=== PATIENT | female | born 1945 | race Caucasian/White ===

== ENCOUNTER 2019-03-06 16:11 | Inpatient (IN) | payer MEDICARE, MEDICAID ==
[2019-03-06] VITALS (19 sets, daily range): BP systolic 92–133; BP diastolic 47–82
[~2019-03-06] VITALS: Ht 165.1 cm; Wt 61.0 kg
[2019-03-06] MEDS ORDERED: ONDANSETRON HCL 4MG/2ML INJ IV STA (16:18)
[2019-03-06] MEDS ORDERED: HYDRALAZINE 20MG/ML VIAL IV ONE (16:30)
[2019-03-06] MEDS ORDERED: LEVETIRACETAM 500MG PREMIX 100 ML IV ONE (16:45)
[2019-03-06] MEDS ORDERED: DEXAMETHASONE 10 MG/ML VIAL IV ONE (16:45)
[2019-03-06] MEDS ORDERED: NICARDIPINE 50 MG in SODIUM CHLORIDE 0.9% 230 ML IV PRN ×2 (16:45→17:15)
[2019-03-06 16:59] LABS: BASOPHILS % 0.8 % (0.0-2.0); EOSINOPHILS % 0.6 % (0.0-5.0); HEMATOCRIT. 40.7 % (36.0-48.0); HEMOGLOBIN. 13.8 g/dL (12.0-16.0); LYMPHOCYTES % 14.1 % (20.0-50.0); MEAN CORPUSCULAR HEMOGLOBIN 31.4 pg (28.0-32.0); MEAN CORPUSCULAR VOLUME 92.4 fL (81.0-99.0); MEAN PLATELET VOLUME 11.7 fl (7.4-10.4); MONOCYTES % 7.1 % (2.0-8.0); NEUTROPHILS % 77.4 % (40.0-76.0); PLATELET 128 x1000/uL (130-400); RED CELL DISTRIBUTION WIDTH 13.7 % (11.6-14.6)
[2019-03-06 17:04] LABS: CHLORIDE 106 mEq/L (98-107)
[2019-03-06 17:08] LABS: PARTIAL THROMBOPLASTIN TIME 29.9 sec (23.4-31.0); PROTHROMBIN TIME 10.1 sec (9.6-11.0)
[2019-03-06 17:09] LABS: ETHANOL BLOOD < 10 mg/dL
[2019-03-06 17:11] LABS: LDL CHOLESTEROL 50 mg/dL (5-100)
[2019-03-06] MEDS: DEXT 5%/LACTATED RINGERS 1,000 ML IV SCH ×2 (17:15→18:30)
[2019-03-06] MEDS ORDERED: NICARDIPINE 100 MG in SODIUM CHLORIDE 0.9% 60 ML IV PRN (17:15)
[2019-03-06] MEDS ORDERED: FUROSEMIDE 20MG/2ML VIAL IVP ONE ×2 (17:15→21:00)
[2019-03-06 18:46] LABS: CLARITY URINE CLEAR (CLEAR); COLOR URINE YELLOW (YELLOW); KETONES URINE NEGATIVE (NEGATIVE); LEUKOCYTE ESTERASE URINE NEGATIVE (NEGATIVE); NITRITE URINE NEGATIVE (NEGATIVE); OCCULT BLOOD URINE NEGATIVE (NEGATIVE); PROTEIN URINE NEGATIVE (NEGATIVE); SPECIFIC GRAVITY URINE 1.006 (1.005-1.030); UROBILINOGEN URINE 0.2 E.U./dL (0.2-1.0)
[2019-03-06] MEDS ORDERED: IOHEXOL-350 100 ML BOTTLE ONE (18:46)
[2019-03-06] MEDS: DEXAMETHASONE 4MG/ML 1ML VIAL IV SCH (19:26)
[2019-03-06] MEDS ORDERED: LEVETIRACETAM 500MG in SODIUM CHLORIDE 0.9% 100ML IV SCH (21:00)
[2019-03-06] MEDS ORDERED: GABA-290 PO (21:11)
[2019-03-06] MEDS: LEVETIRACETAM 500MG PREMIX 100 ML IV SCH (21:40)
[2019-03-06] MEDS ORDERED: ATOR40TA70 MT (21:52)
[2019-03-06] MEDS ORDERED: MIRT15TA6 PO (22:16)
[2019-03-06] MEDS ORDERED: FURO-151 PO (22:17)
[2019-03-06] MEDS ORDERED: ASPI-1497 PO (22:18)
[2019-03-06] MEDS ORDERED: ARIP5TAB58 PO (22:19)
[2019-03-06] MEDS ORDERED: LISI2.5T47 PO (22:20)
[2019-03-06] MEDS ORDERED: ALEN70TA68 PO (22:23)
[2019-03-07] VITALS (100 sets, daily range): BP systolic 80–205; BP diastolic 35–113
[2019-03-07] MEDS: DEXAMETHASONE 4MG/ML 1ML VIAL IV SCH ×5 (00:08→23:29)
[2019-03-07] MEDS: NICARDIPINE 100 MG in SODIUM CHLORIDE 0.9% 60 ML IV PRN (00:15)
[2019-03-07] MEDS ORDERED: FUROSEMIDE 20MG/2ML VIAL IVP NR (01:30)
[2019-03-07] MEDS: MORPHINE SULFATE 2 MG/ML CPJ (NOT FOR IM USE) IV PRN ×5 (07:32→23:29)
[2019-03-07 07:53] LABS: *AMPHETAMINES SCREEN URINE NEGATIVE (NEGATIVE); *BARBITURATES SCREEN URINE NEGATIVE (NEGATIVE); *BENZODIAZEPINES SCREEN URINE NEGATIVE (NEGATIVE); *COCAINE SCREEN URINE NEGATIVE (NEGATIVE); CANNABINOID URINE SCREEN NEGATIVE (NEGATIVE); METHADONE URINE SCREEN NEGATIVE (NEGATIVE); OPIATES URINE SCREEN NEGATIVE (NEGATIVE)
[2019-03-07 07:54] LABS: PHENCYCLIDINE URINE SCREEN NEGATIVE (NEGATIVE)
[2019-03-07] MEDS: LEVETIRACETAM 500MG PREMIX 100 ML IV SCH ×2 (08:03→21:34)
[2019-03-07] MEDS: FAMOTIDINE 20MG/2ML VIAL IV SCH (08:03)
[2019-03-07] MEDS ORDERED: LEVETIRACETAM 500MG PREMIX 100 ML IV SCH (09:00)
[2019-03-07 10:27] LABS: HEMATOCRIT 36.2 % (36.0-48.0); HEMOGLOBIN 12.3 g/dL (12.0-16.0); MEAN CORPUSCULAR HEMOGLOBIN 31.1 pg (28.0-32.0); MEAN CORPUSCULAR VOLUME 91.8 fL (81.0-99.0); PLATELET 153 x1000/uL (130-400); RED BLOOD CELL COUNT 3.95 mill/uL (4.2-5.4); RED CELL DISTRIBUTION WIDTH 13.7 % (11.6-14.6)
[2019-03-07 10:36] LABS: CHLORIDE 109 mEq/L (98-107)
[2019-03-07] MEDS ORDERED: IPRATROPIUM/ALBUTEROL 0.5-3(2.5)MG/3ML NEB HHN PRN (12:00)
[2019-03-07] MEDS ORDERED: POTASSIUM CHLORIDE INJ 40 MEQ in DEXT 5% WATER 250 ML IV NR (13:00)
[2019-03-07] MEDS: DEXT 5%/LACTATED RINGERS 1,000 ML IV SCH (21:33)
[2019-03-08] VITALS (88 sets, daily range): BP systolic 76–211; BP diastolic 16–162
[2019-03-08] MEDS ORDERED: MORPHINE SULFATE 2 MG/ML CPJ (NOT FOR IM USE) IV SCH (01:00)
[2019-03-08] MEDS: NICARDIPINE 100 MG in SODIUM CHLORIDE 0.9% 60 ML IV PRN (04:17)
[2019-03-08] MEDS: MORPHINE SULFATE 2 MG/ML CPJ (NOT FOR IM USE) IV PRN ×2 (04:31→08:54)
[2019-03-08] MEDS: DEXAMETHASONE 4MG/ML 1ML VIAL IV SCH ×2 (05:06→12:15)
[2019-03-08 05:11] LABS: HEMATOCRIT. 37.2 % (36.0-48.0); HEMOGLOBIN. 12.4 g/dL (12.0-16.0); MEAN CORPUSCULAR HEMOGLOBIN 31.4 pg (28.0-32.0); MEAN CORPUSCULAR VOLUME 93.8 fL (81.0-99.0); PLATELET 162 x1000/uL (130-400); RED BLOOD CELL COUNT 3.96 mill/uL (4.2-5.4); RED CELL DISTRIBUTION WIDTH 13.8 % (11.6-14.6)
[2019-03-08 05:13] LABS: CHLORIDE 112 mEq/L (98-107)
[2019-03-08] MEDS: LEVETIRACETAM 500MG PREMIX 100 ML IV SCH ×2 (08:53→21:36)
[2019-03-08] MEDS: FAMOTIDINE 20MG/2ML VIAL IV SCH (08:53)
[2019-03-08 09:48] LABS: PLATELET ESTIMATE NORMAL
[2019-03-08] MEDS ORDERED: MORPHINE SULFATE 4 MG/ML CPJ (NOT FOR IM USE) IV PRN (17:47)
[2019-03-08] MEDS ORDERED: DIPHENHYDRAMINE 50MG/ML VIAL IV PRN (18:00)
[2019-03-08] MEDS ORDERED: HYDROMORPHONE HCL/PF 2MG/ML CPJ IV PRN (18:00)
[2019-03-08] MEDS: TRIAMCINOLONE ACETONIDE 0.025% CREAM 15GM TOP SCH (21:37)
[2019-03-09] VITALS (68 sets, daily range): BP systolic 69–188; BP diastolic 38–130
[2019-03-09] MEDS: LEVETIRACETAM 500MG PREMIX 100 ML IV SCH (08:43)
[2019-03-09] MEDS: FAMOTIDINE 20MG/2ML VIAL IV SCH (08:43)
[2019-03-09] MEDS: TRIAMCINOLONE ACETONIDE 0.025% CREAM 15GM TOP SCH (08:49)
[2019-03-09] MEDS: QUETIAPINE FUMARATE 25MG TABLET PO SCH ×2 (09:00→11:23)
[2019-03-09] MEDS ORDERED: LISI10TA5 PO (13:11)
[2019-03-09] MEDS ORDERED: LISINOPRIL 10MG TABLET PO SCH (13:15)
[2019-03-09] MEDS ORDERED: LEVETIRACETAM 500MG/5ML CUP PO SCH (21:00)
== END 2019-03-09 16:30 | DRG 65 ==
LOC: ER 16:11 → MICUSO 16:47 → ENRESERV 17:59
PROVIDERS: ADMIT Internal Medicine; ATTEND Internal Medicine
PROC: 30233R1 Transfusion of Nonautologous Platelets into Peripheral Vein, Percutaneous Approach (ICD-10-PCS; 2019-03-06)
PROC: 30233K1 Transfusion of Nonautologous Frozen Plasma into Peripheral Vein, Percutaneous Approach (ICD-10-PCS; principal; 2019-03-07)
DX: I61.1 Nontraumatic intracerebral hemorrhage in hemisphere, cortical (principal); G81.91 Hemiplegia, unspecified affecting right dominant side; I50.42 Chronic combined systolic (congestive) and diastolic (congestive) heart failure; G93.49 Other encephalopathy; I11.0 Hypertensive heart disease with heart failure; F03.90 Unspecified dementia, unspecified severity, without behavioral disturbance, psychotic disturbance, mood disturbance, and anxiety; Z66 Do not resuscitate; R74.0 Nonspecific elevation of levels of transaminase and lactic acid dehydrogenase [LDH]; R29.810 Facial weakness; E78.00 Pure hypercholesterolemia, unspecified; F32.9 Major depressive disorder, single episode, unspecified; I25.10 Atherosclerotic heart disease of native coronary artery without angina pectoris; I25.2 Old myocardial infarction
CPT/HCPCS: 36415; 70496; 70498; 71045; 80048; 80053; 80305; 80320; 81003; 82962; 83721; 83880; 84484; 85025; 85027; 86850; 86900; 86927; 92610; 93005; 97167; 99291; A6261; J0360; J1100; J1170; J1200; J1940; J1953; J2270; J2405; J3480; J3490; J7050; J7060; J7070; P9017; P9034; Q9967; G0480

== ENCOUNTER 2021-01-23 11:24 | Inpatient (IN) | payer MEDICARE, MEDICAID ==
[~2021-01-23] VITALS: Ht 165.1 cm; Wt 55.8 kg
[~2021-01-23 11:24] MED LIST: ALEN70TA79 PO; ARIP5TAB58 PO; ASPI-1497 PO; ATOR40TA70 MT; FURO-151 PO; GABA-290 PO; LISI10TA26 PO; LISI2.5T47 PO; MIRT-89 PO
[2021-01-23] MEDS ORDERED: SODIUM CHLORIDE 0.9% 1,000 ML IV ONE (11:30)
[2021-01-23 12:07] LABS: BASOPHILS % 0.6 % (0.0-2.0); EOSINOPHILS % 0.1 % (0.0-5.0); HEMATOCRIT. 35.6 % (36.0-48.0); LYMPHOCYTES % 8.2 % (20.0-50.0); MEAN CORPUSCULAR HEMOGLOBIN 30.8 pg (28.0-32.0); MEAN CORPUSCULAR VOLUME 91.5 fL (81.0-99.0); MEAN PLATELET VOLUME 10.5 fl (7.4-10.4); MONOCYTES % 11.5 % (2.0-8.0); NEUTROPHILS % 79.6 % (40.0-76.0); PLATELET 157 x1000/uL (130-400); RED BLOOD CELL COUNT 3.89 mill/uL (4.2-5.4); RED CELL DISTRIBUTION WIDTH 13.4 % (11.6-14.6)
[2021-01-23 12:16] LABS: CHLORIDE 106 mEq/L (98-107)
[2021-01-23 12:30] LABS: INR 1.1; PROTHROMBIN TIME 11.4 sec (9.6-11.0)
[2021-01-23] MEDS ORDERED: IPRATROPIUM/ALBUTEROL 0.5-3(2.5)MG/3ML NEB HHN PRN (15:00)
[2021-01-23] MEDS ORDERED: ACETAMINOPHEN 325MG TABLET PO PRN (15:00)
[2021-01-23] MEDS ORDERED: CLONIDINE 0.1MG TABLET PO PRN (15:00)
[2021-01-23] MEDS ORDERED: DIPHENHYDRAMINE 50MG/ML VIAL IV PRN (15:00)
[2021-01-23] MEDS ORDERED: ONDANSETRON HCL 4MG/2ML INJ IV PRN (15:00)
[2021-01-23] MEDS ORDERED: SODIUM CHLORIDE 0.9% 1,000 ML IV SCH (15:13)
[2021-01-23] MEDS ORDERED: DEXTROSE 50% WATER 50ML SYRINGE IV PRN (18:45)
[2021-01-23] MEDS ORDERED: SODIUM CHLORIDE 0.9% 1,000 ML IV NR (19:00)
[2021-01-23 20:13] LABS: CLARITY URINE CLEAR (CLEAR); COLOR URINE YELLOW (YELLOW); KETONES URINE NEGATIVE (NEGATIVE); LEUKOCYTE ESTERASE URINE TRACE (NEGATIVE); NITRITE URINE NEGATIVE (NEGATIVE); OCCULT BLOOD URINE NEGATIVE (NEGATIVE); PH URINE 7.5 (4.5-8.0); PROTEIN URINE NEGATIVE (NEGATIVE); SPECIFIC GRAVITY URINE 1.007 (1.005-1.030); UROBILINOGEN URINE 0.2 E.U./dL (0.2-1.0)
[2021-01-23 20:50] VITALS: BP 130/81
[2021-01-23] MEDS: INSULIN LISPRO 100 UNITS/ML SUBCUT SCH (21:00)
[2021-01-23] MEDS: BLOOD SUGAR DIAGNOSTIC STRIP TEST SCH (21:00)
[2021-01-23] MEDS ORDERED: GABA-529 PO (23:58)
[2021-01-23] MEDS ORDERED: LEVE500T19 PO (23:58)
[2021-01-23] MEDS ORDERED: LORA-250 MT (23:58)
[2021-01-23] MEDS ORDERED: BUSP5TAB3 PO (23:58)
[2021-01-23] MEDS ORDERED: QUET25TA PO (23:58)
[2021-01-23] MEDS ORDERED: CLON-457 PO (23:58)
[2021-01-24] VITALS: BP 136/71
[2021-01-24 04:00] VITALS: BP 142/71
[2021-01-24] MEDS: BLOOD SUGAR DIAGNOSTIC STRIP TEST SCH ×4 (07:28→21:00)
[2021-01-24] MEDS: INSULIN LISPRO 100 UNITS/ML SUBCUT SCH ×4 (07:28→21:00)
[2021-01-24 08:00] VITALS: BP 177/90
[2021-01-24 16:00] VITALS: BP 159/97
[2021-01-25] VITALS: BP 191/171
[2021-01-25] MEDS ORDERED: HYDRALAZINE 20MG/ML VIAL IV SCH (00:45)
[2021-01-25] MEDS ORDERED: HYDRALAZINE 20MG/ML VIAL IV PRN (00:45)
[2021-01-25 04:00] VITALS: BP 150/83
[2021-01-25] MEDS: BLOOD SUGAR DIAGNOSTIC STRIP TEST SCH ×2 (07:10→12:10)
[2021-01-25] MEDS: INSULIN LISPRO 100 UNITS/ML SUBCUT SCH ×2 (07:19→12:40)
[2021-01-25] MEDS: AMLODIPINE 2.5MG TABLET PO SCH ×2 (09:00→21:28)
[2021-01-25] MEDS: HYDRALAZINE HCL 50MG TABLET PO SCH ×2 (15:44→21:28)
[2021-01-25 16:00] VITALS: BP 165/79
[2021-01-25] MEDS ORDERED: LORAZEPAM 1MG TABLET PO PRN (18:00)
[2021-01-25] MEDS: ASPIRIN 81MG EC TABLET PO SCH (18:20)
[2021-01-25] MEDS: ARIPIPRAZOLE 5MG TABLET PO SCH (18:20)
[2021-01-25] MEDS: BUSPIRONE HCL 5MG TABLET PO SCH (18:23)
[2021-01-25 20:00] VITALS: BP 170/78
[2021-01-25] MEDS ORDERED: QUETIAPINE FUMARATE 25MG TABLET PO SCH (21:00)
[2021-01-25] MEDS: ATORVASTATIN CALCIUM 40MG TABLET PO SCH (21:28)
[2021-01-25] MEDS: MIRTAZAPINE 15MG TABLET PO SCH (21:28)
[2021-01-26] VITALS: BP 110/43
[2021-01-26 04:00] VITALS: BP 97/63
[2021-01-26] MEDS: HYDRALAZINE HCL 50MG TABLET PO SCH ×3 (06:00→22:00)
[2021-01-26] MEDS: ASPIRIN 81MG EC TABLET PO SCH (09:00)
[2021-01-26] MEDS ORDERED: LEVETIRACETAM 500MG TABLET PO SCH (09:00)
[2021-01-26] MEDS: ARIPIPRAZOLE 5MG TABLET PO SCH (09:00)
[2021-01-26] MEDS: BUSPIRONE HCL 5MG TABLET PO SCH (09:00)
[2021-01-26] MEDS ORDERED: GABAPENTIN 100MG CAPSULE PO SCH (09:00)
[2021-01-26] MEDS: AMLODIPINE 2.5MG TABLET PO SCH ×2 (09:00→20:51)
[2021-01-26] MEDS ORDERED: FUROSEMIDE 40MG TABLET PO SCH (09:00)
[2021-01-26 09:22] LABS: BASOPHILS % 0.6 % (0.0-2.0); EOSINOPHILS % 0.7 % (0.0-5.0); HEMATOCRIT. 43.3 % (36.0-48.0); HEMOGLOBIN. 14.3 g/dL (12.0-16.0); LYMPHOCYTES % 12.2 % (20.0-50.0); MEAN CORPUSCULAR HEMOGLOBIN 30.6 pg (28.0-32.0); MEAN CORPUSCULAR VOLUME 92.6 fL (81.0-99.0); MONOCYTES % 8.8 % (2.0-8.0); NEUTROPHILS % 77.7 % (40.0-76.0); PLATELET 176 x1000/uL (130-400); RED BLOOD CELL COUNT 4.67 mill/uL (4.2-5.4); RED CELL DISTRIBUTION WIDTH 13.6 % (11.6-14.6)
[2021-01-26] MEDS ORDERED: QUETIAPINE FUMARATE 25MG TABLET PO SCH (10:30)
[2021-01-26] MEDS ORDERED: QUET25TA PO (11:39)
[2021-01-26] MEDS ORDERED: HYDR-4135 PO (11:39)
[2021-01-26 16:00] VITALS: BP 102/69
[2021-01-26] MEDS: ATORVASTATIN CALCIUM 40MG TABLET PO SCH (20:51)
[2021-01-26] MEDS: MIRTAZAPINE 15MG TABLET PO SCH (20:52)
[2021-01-27] MEDS: HYDRALAZINE HCL 50MG TABLET PO SCH (05:21)
== END 2021-01-27 08:20 | DRG 73 ==
LOC: ER 11:24 → EDBEDREQTM 13:38 → EDBEDREQ 13:38 → ENRESERV 20:23 → 8WST 20:54
PROVIDERS: ADMIT Internal Medicine; ATTEND Internal Medicine
DX: G90.8 Other disorders of autonomic nervous system (principal); R57.1 Hypovolemic shock; G93.49 Other encephalopathy; E44.1 Mild protein-calorie malnutrition; N39.0 Urinary tract infection, site not specified; F03.91 Unspecified dementia, unspecified severity, with behavioral disturbance; R45.851 Suicidal ideations; E78.5 Hyperlipidemia, unspecified; I11.0 Hypertensive heart disease with heart failure; I25.10 Atherosclerotic heart disease of native coronary artery without angina pectoris; I50.9 Heart failure, unspecified; Z66 Do not resuscitate; F20.9 Schizophrenia, unspecified; R00.1 Bradycardia, unspecified; Z53.20 Procedure and treatment not carried out because of patient's decision for unspecified reasons; F31.9 Bipolar disorder, unspecified; T73.0XXA Starvation, initial encounter; X58.XXXA Exposure to other specified factors, initial encounter; Z20.822 Contact with and (suspected) exposure to COVID-19; G40.909 Epilepsy, unspecified, not intractable, without status epilepticus; I25.2 Old myocardial infarction; Z79.899 Other long term (current) drug therapy; Z86.73 Personal history of transient ischemic attack (TIA), and cerebral infarction without residual deficits; Z68.20 Body mass index [BMI] 20.0-20.9, adult; Z91.14 Patient's other noncompliance with medication regimen; Y93.89 Activity, other specified; Y92.89 Other specified places as the place of occurrence of the external cause; Y99.8 Other external cause status
CPT/HCPCS: 36415; 71045; 80048; 80053; 81003; 82962; 83036; 83605; 84484; 85025; 86850; 86900; 87426; 93005; 93970; 99291; J0360; J7030

== ENCOUNTER 2021-12-31 13:20 | Inpatient (IN) | payer MEDICARE, MEDICAID ==
[~2021-12-31] VITALS: Ht 162.6 cm; Wt 58.1 kg
[~2021-12-31 13:20] MED LIST changes: +BUSP5TAB3 PO; -FURO-151 PO; -GABA-290 PO; +GABA-529 PO; +HYDR-4135 PO; +LEVE500T19 PO; -LISI10TA26 PO; -LISI2.5T47 PO; +LORA-250 MT; +QUET25TA PO
[2021-12-31 15:44] LABS: HEMATOCRIT. 32.6 % (36.0-48.0); MEAN CORPUSCULAR VOLUME 88.8 fL (81.0-99.0); RED BLOOD CELL COUNT 3.67 mill/uL (4.2-5.4); RED CELL DISTRIBUTION WIDTH 13.6 % (11.6-14.6)
[2021-12-31 15:47] LABS: PROTHROMBIN TIME 10.9 sec (9.6-11.0)
[2021-12-31 15:54] LABS: CHLORIDE 106 mEq/L (98-107)
[2021-12-31 16:40] LABS: PLATELET ESTIMATE NORMAL
[2021-12-31 18:16] LABS: PHOSPHORUS 2.5 mg/dL (2.5-4.9)
[2021-12-31] MEDS ORDERED: LORAZEPAM 2MG/ML CPJ IV PRN (18:45)
[2021-12-31] MEDS ORDERED: MORPHINE SULFATE 2 MG/ML CPJ (NOT FOR IM USE) IV PRN (18:45)
[2021-12-31] MEDS ORDERED: DEXT 5%/0.9% NACL 1,000 ML IV SCH (18:45)
[2021-12-31] MEDS ORDERED: IPRATROPIUM/ALBUTEROL 0.5-3(2.5)MG/3ML NEB HHN PRN (18:45)
[2021-12-31] MEDS ORDERED: ONDANSETRON HCL 4MG/2ML INJ IV PRN (18:45)
[2021-12-31 20:05] LABS: TOTAL IRON BINDING CAPACITY 246 ug/dL (250-450)
[2021-12-31 20:59] LABS: FERRITIN 1572 ng/mL (10-291)
[2021-12-31] MEDS ORDERED: LEVETIRACETAM 500MG PREMIX 100 ML IV SCH (21:00)
[2021-12-31 21:05] LABS: VITAMIN B12 SERUM 327 pg/mL (211-911)
[2021-12-31 21:37] VITALS: BP 185/84
[2021-12-31 22:00] VITALS: BP 185/84
[2022-01-01] VITALS: BP 109/63
[2022-01-01 04:00] VITALS: BP 138/88
[2022-01-01 06:21] LABS: BASOPHILS % 0.7 % (0.0-2.0); EOSINOPHILS % 0.8 % (0.0-5.0); HEMATOCRIT. 33.5 % (36.0-48.0); HEMOGLOBIN. 11.4 g/dL (12.0-16.0); LYMPHOCYTES % 12.5 % (20.0-50.0); MEAN CORPUSCULAR HEMOGLOBIN 31.3 pg (28.0-32.0); MEAN CORPUSCULAR VOLUME 91.8 fL (81.0-99.0); MEAN PLATELET VOLUME 9.6 fl (7.4-10.4); MONOCYTES % 9.7 % (2.0-8.0); NEUTROPHILS % 76.3 % (40.0-76.0); PLATELET 289 x1000/uL (130-400); RED BLOOD CELL COUNT 3.65 mill/uL (4.2-5.4); RED CELL DISTRIBUTION WIDTH 13.8 % (11.6-14.6)
[2022-01-01 06:35] LABS: CHLORIDE 106 mEq/L (98-107)
[2022-01-01 06:56] LABS: T4 FREE 1.45 ng/dL (0.76-1.46)
[2022-01-01 08:00] VITALS: BP 111/56
[2022-01-01] MEDS: ENOXAPARIN 30MG/0.3ML SYR SUBCUT SCH (09:44)
[2022-01-01] MEDS ORDERED: NALOXONE HCL 0.4MG/ML VIAL IV PRN (10:30)
[2022-01-01] MEDS: DEXT 5%/0.9% NACL 1,000 ML IV SCH (11:06)
[2022-01-01 12:00] VITALS: BP 153/72
[2022-01-01] MEDS ORDERED: KCL 20MEQ/100ML PREMIX 100 ML IV SCH (15:00)
[2022-01-01 16:00] VITALS: BP 150/72
[2022-01-01 16:32] LABS: CLARITY URINE CLEAR (CLEAR); COLOR URINE YELLOW (YELLOW); KETONES URINE TRACE (NEGATIVE); LEUKOCYTE ESTERASE URINE 2+ (NEGATIVE); NITRITE URINE NEGATIVE (NEGATIVE); OCCULT BLOOD URINE NEGATIVE (NEGATIVE); PROTEIN URINE 1+ (NEGATIVE); SPECIFIC GRAVITY URINE 1.014 (1.005-1.030); UROBILINOGEN URINE 0.2 E.U./dL (0.2-1.0)
[2022-01-01] MEDS ORDERED: CEFTRIAXONE 1 G PREMIX 50 ML IV SCH (16:45)
[2022-01-01] MEDS: CEFTRIAXONE 1,000 MG in DEXTROSE 5% WATER 50 ML IV SCH (18:40)
[2022-01-01 20:00] VITALS: BP 100/72
[2022-01-01] MEDS: LEVETIRACETAM 500MG PREMIX 100 ML IV SCH (20:33)
[2022-01-02] VITALS: BP 164/86
[2022-01-02] MEDS: HYDRALAZINE 20MG/ML VIAL IV PRN ×2 (00:23→20:32)
[2022-01-02 04:00] VITALS: BP 158/90
[2022-01-02] MEDS: DEXT 5%/0.9% NACL 1,000 ML IV SCH (05:16)
[2022-01-02] MEDS ORDERED: ASPIRIN 300MG SUPP PR NR (07:30)
[2022-01-02 08:00] VITALS: BP 188/83
[2022-01-02 09:19] LABS: BASOPHILS % 0.7 % (0.0-2.0); EOSINOPHILS % 0.6 % (0.0-5.0); HEMATOCRIT. 33.8 % (36.0-48.0); HEMOGLOBIN. 11.5 g/dL (12.0-16.0); LYMPHOCYTES % 11.3 % (20.0-50.0); MEAN CORPUSCULAR HEMOGLOBIN 30.6 pg (28.0-32.0); MEAN CORPUSCULAR VOLUME 89.6 fL (81.0-99.0); MEAN PLATELET VOLUME 9.9 fl (7.4-10.4); MONOCYTES % 8.6 % (2.0-8.0); NEUTROPHILS % 78.8 % (40.0-76.0); PLATELET 278 x1000/uL (130-400); RED BLOOD CELL COUNT 3.77 mill/uL (4.2-5.4); RED CELL DISTRIBUTION WIDTH 13.1 % (11.6-14.6)
[2022-01-02] MEDS: ENOXAPARIN 30MG/0.3ML SYR SUBCUT SCH (09:29)
[2022-01-02] MEDS: LEVETIRACETAM 500MG PREMIX 100 ML IV SCH ×2 (09:29→20:32)
[2022-01-02 09:32] LABS: CHLORIDE 111 mEq/L (98-107)
[2022-01-02] MEDS ORDERED: POTASSIUM CHLORIDE INJ 40 MEQ in DEXT 5% WATER 250 ML IV ONE (10:00)
[2022-01-02] MEDS ORDERED: BISACODYL 5MG TABLET PO NR (11:45)
[2022-01-02] MEDS ORDERED: SORBITOL 70% SOLN 30ML PO NR (11:45)
[2022-01-02 12:00] VITALS: BP 152/69
[2022-01-02] MEDS: KCL 20MEQ/100ML X 2 FOR TOTAL KCL 40MEQ/200ML IV SCH ×2 (12:13→16:22)
[2022-01-02] MEDS ORDERED: KCL 20MEQ/100ML PREMIX 100 ML IV SCH (14:30)
[2022-01-02 16:00] VITALS: BP 160/80
[2022-01-02] MEDS: CEFTRIAXONE 1,000 MG in DEXTROSE 5% WATER 50 ML IV SCH (18:05)
[2022-01-02 18:30] LABS: BASOPHILS % 0.7 % (0.0-2.0); EOSINOPHILS % 0.5 % (0.0-5.0); HEMATOCRIT. 35.2 % (36.0-48.0); HEMOGLOBIN. 11.8 g/dL (12.0-16.0); LYMPHOCYTES % 13.5 % (20.0-50.0); MEAN CORPUSCULAR HEMOGLOBIN 30.8 pg (28.0-32.0); MEAN CORPUSCULAR VOLUME 91.5 fL (81.0-99.0); MEAN PLATELET VOLUME 9.9 fl (7.4-10.4); MONOCYTES % 9.2 % (2.0-8.0); NEUTROPHILS % 76.1 % (40.0-76.0); PLATELET 277 x1000/uL (130-400); RED BLOOD CELL COUNT 3.85 mill/uL (4.2-5.4); RED CELL DISTRIBUTION WIDTH 13.9 % (11.6-14.6)
[2022-01-02 18:47] LABS: CHLORIDE 112 mEq/L (98-107)
[2022-01-02 20:00] VITALS: BP 160/67
[2022-01-03] VITALS (10 sets, daily range): BP systolic 97–207; BP diastolic 57–98
[2022-01-03] MEDS: DEXT 5%/0.9% NACL 1,000 ML IV SCH ×2 (03:09→21:17)
[2022-01-03] MEDS ORDERED: ENALAPRIL 0.625 MG in DEXTROSE 5% WATER 49.5 ML IV PRN (07:30)
[2022-01-03] MEDS: ENOXAPARIN 30MG/0.3ML SYR SUBCUT SCH (09:10)
[2022-01-03] MEDS: LEVETIRACETAM 500MG PREMIX 100 ML IV SCH ×2 (09:10→20:02)
[2022-01-03] MEDS ORDERED: LORAZEPAM 2MG/ML CPJ IV PRN (12:45)
[2022-01-03] MEDS: ENALAPRIL 1.25MG/ML VIAL 1ML IV PRN ×2 (14:52→21:16)
[2022-01-03 16:08] LABS: BASOPHILS % 0.5 % (0.0-2.0); EOSINOPHILS % 0.3 % (0.0-5.0); HEMATOCRIT. 34.3 % (36.0-48.0); HEMOGLOBIN. 11.8 g/dL (12.0-16.0); LYMPHOCYTES % 10.8 % (20.0-50.0); MEAN CORPUSCULAR HEMOGLOBIN 31.1 pg (28.0-32.0); MEAN CORPUSCULAR VOLUME 90.3 fL (81.0-99.0); MEAN PLATELET VOLUME 9.4 fl (7.4-10.4); MONOCYTES % 8.5 % (2.0-8.0); NEUTROPHILS % 79.9 % (40.0-76.0); PLATELET 312 x1000/uL (130-400); RED BLOOD CELL COUNT 3.79 mill/uL (4.2-5.4); RED CELL DISTRIBUTION WIDTH 13.4 % (11.6-14.6)
[2022-01-03 16:31] LABS: CHLORIDE 115 mEq/L (98-107)
[2022-01-03] MEDS: CEFTRIAXONE 1,000 MG in DEXTROSE 5% WATER 50 ML IV SCH (17:15)
[2022-01-04] VITALS (7 sets, daily range): BP systolic 127–204; BP diastolic 83–105
[2022-01-04 06:55] LABS: BASOPHILS % 0.7 % (0.0-2.0); EOSINOPHILS % 0.8 % (0.0-5.0); HEMATOCRIT. 32.9 % (36.0-48.0); HEMOGLOBIN. 11.2 g/dL (12.0-16.0); LYMPHOCYTES % 14.7 % (20.0-50.0); MEAN CORPUSCULAR HEMOGLOBIN 30.5 pg (28.0-32.0); MEAN PLATELET VOLUME 9.6 fl (7.4-10.4); MONOCYTES % 9.1 % (2.0-8.0); NEUTROPHILS % 74.7 % (40.0-76.0); PLATELET 334 x1000/uL (130-400); RED BLOOD CELL COUNT 3.65 mill/uL (4.2-5.4); RED CELL DISTRIBUTION WIDTH 13.9 % (11.6-14.6)
[2022-01-04 06:58] LABS: INR 1.1; PROTHROMBIN TIME 12.2 sec (9.6-11.0)
[2022-01-04 07:19] LABS: CHLORIDE 116 mEq/L (98-107)
[2022-01-04] MEDS ORDERED: POTASSIUM CHLORIDE INJ 40 MEQ in DEXT 5% WATER 250 ML IV ONE (08:45)
[2022-01-04] MEDS: ENOXAPARIN 30MG/0.3ML SYR SUBCUT SCH (09:33)
[2022-01-04] MEDS: LEVETIRACETAM 500MG PREMIX 100 ML IV SCH ×2 (09:33→20:22)
[2022-01-04] MEDS: KCL 20MEQ/100ML X 2 FOR TOTAL KCL 40MEQ/200ML IV SCH ×2 (10:14→12:51)
[2022-01-04] MEDS ORDERED: CEFAZOLIN 1000MG PREMIX 50 ML IV NR (11:00)
[2022-01-04 16:16] LABS: CHLORIDE 116 mEq/L (98-107)
[2022-01-04] MEDS: CEFTRIAXONE 1,000 MG in DEXTROSE 5% WATER 50 ML IV SCH (17:04)
[2022-01-04] MEDS ORDERED: KCL 20MEQ/100ML PREMIX 100 ML IV NR (20:00)
[2022-01-04] MEDS: DEXT 5%/0.9% NACL 1,000 ML IV SCH (20:29)
[2022-01-04] MEDS: ENALAPRIL 1.25MG/ML VIAL 1ML IV PRN (21:11)
[2022-01-05] VITALS: BP 205/114
[2022-01-05] MEDS: ENALAPRIL 1.25MG/ML VIAL 1ML IV PRN ×3 (02:41→23:26)
[2022-01-05 04:00] VITALS: BP 182/86
[2022-01-05 08:00] VITALS: BP 156/77
[2022-01-05] MEDS ORDERED: POTASSIUM-SODIUM PHOSPHATE POWDER PACKET PEG SCH (08:45)
[2022-01-05] MEDS: LEVETIRACETAM 500MG PREMIX 100 ML IV SCH ×2 (09:01→20:44)
[2022-01-05] MEDS: ENOXAPARIN 30MG/0.3ML SYR SUBCUT SCH (09:02)
[2022-01-05] MEDS ORDERED: MAGNESIUM 2 G PREMIX 50 ML IV SCH (11:00)
[2022-01-05] MEDS ORDERED: POTASSIUM PHOS,M-BASIC-D-BASIC 30 MMOL in DEXT 5% WATER 500 ML IV NR (11:00)
[2022-01-05 12:00] VITALS: BP_SYST 102; BP_SYST 158; BP_DIAS 84
[2022-01-05 13:04] LABS: BASOPHILS % 1.2 % (0.0-2.0); EOSINOPHILS % 0.5 % (0.0-5.0); HEMATOCRIT. 34.8 % (36.0-48.0); HEMOGLOBIN. 11.7 g/dL (12.0-16.0); MEAN CORPUSCULAR HEMOGLOBIN 30.2 pg (28.0-32.0); MEAN CORPUSCULAR VOLUME 89.6 fL (81.0-99.0); MEAN PLATELET VOLUME 9.6 fl (7.4-10.4); MONOCYTES % 7.9 % (2.0-8.0); NEUTROPHILS % 72.4 % (40.0-76.0); PLATELET 306 x1000/uL (130-400); RED BLOOD CELL COUNT 3.89 mill/uL (4.2-5.4); RED CELL DISTRIBUTION WIDTH 13.9 % (11.6-14.6)
[2022-01-05 13:19] LABS: CHLORIDE 115 mEq/L (98-107)
[2022-01-05] MEDS: KCL 20MEQ/100ML PREMIX 100 ML IV SCH ×3 (15:21→23:25)
[2022-01-05] MEDS: DEXT 5%/0.45% NACL 1000ML 1,000 ML IV SCH (15:38)
[2022-01-05 16:00] VITALS: BP 199/99
[2022-01-05] MEDS: CEFTRIAXONE 1,000 MG in DEXTROSE 5% WATER 50 ML IV SCH (17:26)
[2022-01-05 18:20] LABS: PHOSPHORUS 2.2 mg/dL (2.5-4.9)
[2022-01-05 20:00] VITALS: BP 203/112
[2022-01-05 21:28] LABS: CHLORIDE 113 mEq/L (98-107)
[2022-01-06] VITALS (7 sets, daily range): BP systolic 116–194; BP diastolic 68–108
[2022-01-06] MEDS: KCL 20MEQ/100ML PREMIX 100 ML IV SCH (03:11)
[2022-01-06 03:39] LABS: BASOPHILS % 1.2 % (0.0-2.0); EOSINOPHILS % 1.3 % (0.0-5.0); HEMATOCRIT. 35.1 % (36.0-48.0); HEMOGLOBIN. 11.9 g/dL (12.0-16.0); LYMPHOCYTES % 19.3 % (20.0-50.0); MEAN CORPUSCULAR HEMOGLOBIN 30.3 pg (28.0-32.0); MEAN CORPUSCULAR VOLUME 89.4 fL (81.0-99.0); MEAN PLATELET VOLUME 9.3 fl (7.4-10.4); MONOCYTES % 9.9 % (2.0-8.0); NEUTROPHILS % 68.3 % (40.0-76.0); PLATELET 296 x1000/uL (130-400); RED BLOOD CELL COUNT 3.93 mill/uL (4.2-5.4); RED CELL DISTRIBUTION WIDTH 14.2 % (11.6-14.6)
[2022-01-06 03:46] LABS: CHLORIDE 116 mEq/L (98-107)
[2022-01-06 04:04] LABS: INR 1.1; PROTHROMBIN TIME 11.9 sec (9.6-11.0)
[2022-01-06] MEDS: DEXT 5%/0.45% NACL 1000ML 1,000 ML IV SCH (04:35)
[2022-01-06] MEDS: LEVETIRACETAM 500MG PREMIX 100 ML IV SCH ×2 (08:58→21:01)
[2022-01-06] MEDS: ENALAPRIL 1.25MG/ML VIAL 1ML IV PRN (08:59)
[2022-01-06] MEDS ORDERED: MEPERIDINE HCL/PF 25MG/ML CPJ IV PRN (09:45)
[2022-01-06] MEDS ORDERED: CEFAZOLIN 1000MG PREMIX 50 ML IV NR (10:00)
[2022-01-06] MEDS ORDERED: PROPOFOL 200MG/20ML VIAL IV ONE (10:49)
[2022-01-06] MEDS: CEFTRIAXONE 1,000 MG in DEXTROSE 5% WATER 50 ML IV SCH (17:45)
[2022-01-07] VITALS (7 sets, daily range): BP systolic 118–183; BP diastolic 73–98
[2022-01-07] MEDS: ENOXAPARIN 30MG/0.3ML SYR SUBCUT SCH (09:37)
[2022-01-07] MEDS: ASPIRIN 81MG TABLET PO SCH (09:37)
[2022-01-07] MEDS: LEVETIRACETAM 500MG PREMIX 100 ML IV SCH ×2 (09:39→21:44)
[2022-01-07 15:00] LABS: BASOPHILS % 0.8 % (0.0-2.0); EOSINOPHILS % 0.7 % (0.0-5.0); HEMATOCRIT. 37.5 % (36.0-48.0); HEMOGLOBIN. 12.4 g/dL (12.0-16.0); LYMPHOCYTES % 15.8 % (20.0-50.0); MEAN CORPUSCULAR HEMOGLOBIN 29.5 pg (28.0-32.0); MEAN PLATELET VOLUME 9.8 fl (7.4-10.4); MONOCYTES % 8.2 % (2.0-8.0); NEUTROPHILS % 74.5 % (40.0-76.0); PLATELET 317 x1000/uL (130-400); RED BLOOD CELL COUNT 4.21 mill/uL (4.2-5.4); RED CELL DISTRIBUTION WIDTH 13.7 % (11.6-14.6)
[2022-01-07 15:25] LABS: CHLORIDE 115 mEq/L (98-107)
[2022-01-07] MEDS ORDERED: POTASSIUM CHLORIDE 20MEQ TABLET SR PO NR (16:00)
[2022-01-07] MEDS ORDERED: MAGNESIUM 1 G PREMIX 100 ML IV NR (17:30)
[2022-01-08] VITALS: BP 129/87
[2022-01-08 04:00] VITALS: BP 136/88
[2022-01-08 08:00] VITALS: BP 148/104
[2022-01-08] MEDS: ENOXAPARIN 30MG/0.3ML SYR SUBCUT SCH (09:00)
[2022-01-08] MEDS: ASPIRIN 81MG TABLET PO SCH (09:00)
[2022-01-08] MEDS: LEVETIRACETAM 500MG PREMIX 100 ML IV SCH (09:00)
[2022-01-08 12:00] VITALS: BP 121/86
[2022-01-08] MEDS ORDERED: SENNOSIDES 8.6MG TABLET GT PRN (15:15)
[2022-01-08] MEDS ORDERED: LACTULOSE 20G/30ML UDC GT NR (15:30)
[2022-01-08 16:00] VITALS: BP 160/87
[2022-01-09] MEDS ORDERED: DOCUSATE SODIUM SUGAR FREE 100MG/10ML UDC GT SCH (09:00)
== END 2022-01-08 18:05 | DRG 393 ==
LOC: ER 13:20 → 7EST 15:22 → EDBEDREQ 15:27 → EDBEDREQTM 15:27 → ENRESERV 17:23
PROVIDERS: ADMIT Hospitalist; ATTEND Hospitalist
PROC: 0DH63UZ Insertion of Feeding Device into Stomach, Percutaneous Approach (ICD-10-PCS; principal; 2022-01-06)
DX: K94.23 Gastrostomy malfunction (principal); I21.4 Non-ST elevation (NSTEMI) myocardial infarction; E44.0 Moderate protein-calorie malnutrition; N39.0 Urinary tract infection, site not specified; L03.311 Cellulitis of abdominal wall; K94.22 Gastrostomy infection; E83.52 Hypercalcemia; G40.909 Epilepsy, unspecified, not intractable, without status epilepticus; Z66 Do not resuscitate; I16.0 Hypertensive urgency; K80.20 Calculus of gallbladder without cholecystitis without obstruction; K56.41 Fecal impaction; K44.9 Diaphragmatic hernia without obstruction or gangrene; K62.89 Other specified diseases of anus and rectum; D25.9 Leiomyoma of uterus, unspecified; E83.39 Other disorders of phosphorus metabolism; E83.42 Hypomagnesemia; E87.6 Hypokalemia; I50.9 Heart failure, unspecified; I11.0 Hypertensive heart disease with heart failure; N81.10 Cystocele, unspecified; R32 Unspecified urinary incontinence; R00.1 Bradycardia, unspecified; F32.A Depression, unspecified; R13.10 Dysphagia, unspecified; F03.C0 Unspecified dementia, severe, without behavioral disturbance, psychotic disturbance, mood disturbance, and anxiety; F20.9 Schizophrenia, unspecified; D50.9 Iron deficiency anemia, unspecified; Z20.822 Contact with and (suspected) exposure to COVID-19; Y83.3 Surgical operation with formation of external stoma as the cause of abnormal reaction of the patient, or of later complication, without mention of misadventure at the time of the procedure; K52.89 Other specified noninfective gastroenteritis and colitis; I25.2 Old myocardial infarction; Z86.73 Personal history of transient ischemic attack (TIA), and cerebral infarction without residual deficits; Y92.89 Other specified places as the place of occurrence of the external cause; Z79.899 Other long term (current) drug therapy; Z68.22 Body mass index [BMI] 22.0-22.9, adult; Z79.82 Long term (current) use of aspirin
CPT/HCPCS: 36415; 71045; 74176; 76705; 80048; 80053; 81003; 82330; 82607; 82728; 82746; 83540; 83550; 83735; 83970; 84100; 84145; 84439; 84443; 84484; 85025; 85379; 87426; 93005; 93970; 99285; C1893; C9803; J0360; J0690; J0696; J1650; J1953; J2704; J3475; J3480; J3490; J7042; J7060; A4315

== ENCOUNTER 2022-01-13 02:54 | Inpatient (IN) | payer MEDICARE, MEDICAID ==
[~2022-01-13] VITALS: Ht 162.6 cm; Wt 56.7 kg
[2022-01-13] MEDS ORDERED: SODIUM CHLORIDE 0.9% 1,000 ML IV ONE (03:45)
[2022-01-13 04:32] LABS: BASOPHILS % 0.7 % (0.0-2.0); EOSINOPHILS % 2.3 % (0.0-5.0); HEMATOCRIT. 34.6 % (36.0-48.0); HEMOGLOBIN. 11.6 g/dL (12.0-16.0); LYMPHOCYTES % 18.7 % (20.0-50.0); MEAN CORPUSCULAR HEMOGLOBIN 30.5 pg (28.0-32.0); MEAN CORPUSCULAR VOLUME 90.4 fL (81.0-99.0); MEAN PLATELET VOLUME 11.5 fl (7.4-10.4); MONOCYTES % 10.4 % (2.0-8.0); NEUTROPHILS % 67.9 % (40.0-76.0); PLATELET 157 x1000/uL (130-400); RED BLOOD CELL COUNT 3.82 mill/uL (4.2-5.4); RED CELL DISTRIBUTION WIDTH 14.3 % (11.6-14.6)
[2022-01-13 04:40] LABS: CHLORIDE 110 mEq/L (98-107)
[2022-01-13 04:45] LABS: PROTHROMBIN TIME 10.9 sec (9.6-11.0)
[2022-01-13] MEDS ORDERED: IPRATROPIUM/ALBUTEROL 0.5-3(2.5)MG/3ML NEB NEB PRN (07:15)
[2022-01-13] MEDS ORDERED: ACETAMINOPHEN 650MG SUPP PR PRN ×2 (07:15)
[2022-01-13] MEDS ORDERED: ONDANSETRON HCL 4MG/2ML INJ IV PRN (07:15)
[2022-01-13] MEDS ORDERED: NITROGLYCERIN 0.4MG TABLET SL SL PRN (07:15)
[2022-01-13] MEDS ORDERED: PANTOPRAZOLE SODIUM 40 MG/VIAL IV SCH (09:00)
[2022-01-13 10:00] VITALS: BP 136/81
[2022-01-13 11:05] VITALS: BP 136/81
[2022-01-13] MEDS: ENOXAPARIN 40MG/0.4ML SYR SUBCUT SCH (11:20)
[2022-01-13 12:00] VITALS: BP 180/79
[2022-01-13 13:27] LABS: VITAMIN B12 SERUM 468 pg/mL (211-911)
[2022-01-13] MEDS: DEXT 5%/LACTATED RINGERS 1,000 ML IV SCH ×2 (14:31→20:34)
[2022-01-13] MEDS: NITROGLYCERIN OINT 1GM/INCH UDPKT TD SCH ×2 (14:31→21:06)
[2022-01-13 16:00] VITALS: BP_SYST 138; BP_SYST 142; BP_DIAS 75; BP_DIAS 80
[2022-01-13] MEDS ORDERED: POTASSIUM CHLORIDE INJ 40 MEQ in DEXT 5% WATER 500 ML IV NR (16:00)
[2022-01-13 16:35] LABS: T4 FREE 1.35 ng/dL (0.76-1.46)
[2022-01-13 20:21] VITALS: BP 188/116
[2022-01-13] MEDS: PANTOPRAZOLE SODIUM 40 MG/VIAL IV SCH (20:33)
[2022-01-13 20:47] LABS: CHLORIDE 112 mEq/L (98-107)
[2022-01-14] VITALS (8 sets, daily range): BP systolic 87–172; BP diastolic 37–87
[2022-01-14 03:35] LABS: BASOPHILS % 0.7 % (0.0-2.0); EOSINOPHILS % 2.1 % (0.0-5.0); HEMATOCRIT. 35.5 % (36.0-48.0); HEMOGLOBIN. 11.8 g/dL (12.0-16.0); MEAN CORPUSCULAR HEMOGLOBIN 29.8 pg (28.0-32.0); MEAN CORPUSCULAR VOLUME 89.6 fL (81.0-99.0); MONOCYTES % 9.5 % (2.0-8.0); NEUTROPHILS % 70.7 % (40.0-76.0); PLATELET 144 x1000/uL (130-400); RED BLOOD CELL COUNT 3.96 mill/uL (4.2-5.4); RED CELL DISTRIBUTION WIDTH 13.9 % (11.6-14.6)
[2022-01-14 03:45] LABS: PROTHROMBIN TIME 10.9 sec (9.6-11.0)
[2022-01-14 03:58] LABS: CHLORIDE 109 mEq/L (98-107)
[2022-01-14 04:02] LABS: PHOSPHORUS 1.9 mg/dL (2.5-4.9)
[2022-01-14] MEDS: NITROGLYCERIN OINT 1GM/INCH UDPKT TD SCH ×3 (05:43→23:47)
[2022-01-14] MEDS ORDERED: KCL 20MEQ/100ML PREMIX 100 ML IV NR (07:00)
[2022-01-14] MEDS ORDERED: CEFAZOLIN 1000MG PREMIX 50 ML IV NR (09:00)
[2022-01-14] MEDS: DEXT 5%/LACTATED RINGERS 1,000 ML IV SCH ×2 (09:15→23:48)
[2022-01-14] MEDS: PANTOPRAZOLE SODIUM 40 MG/VIAL IV SCH ×2 (09:15→20:52)
[2022-01-14] MEDS ORDERED: PROPOFOL 200MG/20ML VIAL IV ONE (13:03)
[2022-01-14] MEDS ORDERED: MIDAZOLAM HCL 2 MG/2 ML VIAL ONE (13:16)
[2022-01-14] MEDS ORDERED: EPHEDRINE SULFATE 50MG/ML VIAL ONE (13:42)
[2022-01-14] MEDS ORDERED: ONDANSETRON HCL 4MG/2ML INJ ONE (13:42)
[2022-01-14] MEDS ORDERED: DEXAMETHASONE 4MG/ML 1ML VIAL ONE (13:42)
[2022-01-14] MEDS ORDERED: HYDRALAZINE 20MG/ML VIAL IV ONE (15:45)
[2022-01-14] MEDS: METOCLOPRAMIDE HCL 10MG/2ML VIAL IV SCH ×2 (18:27→23:47)
[2022-01-14] MEDS: SUCRALFATE 1 G/10 ML UDC GT SCH ×2 (18:27→23:46)
[2022-01-15 00:39] VITALS: BP 120/60
[2022-01-15 04:20] VITALS: BP 139/101
[2022-01-15] MEDS: METOCLOPRAMIDE HCL 10MG/2ML VIAL IV SCH ×4 (05:16→23:17)
[2022-01-15] MEDS: SUCRALFATE 1 G/10 ML UDC GT SCH ×4 (05:16→23:17)
[2022-01-15] MEDS: NITROGLYCERIN OINT 1GM/INCH UDPKT TD SCH ×3 (05:17→20:38)
[2022-01-15 07:54] LABS: BASOPHILS % 0.3 % (0.0-2.0); EOSINOPHILS % 0.1 % (0.0-5.0); HEMATOCRIT. 33.7 % (36.0-48.0); HEMOGLOBIN. 11.5 g/dL (12.0-16.0); LYMPHOCYTES % 12.3 % (20.0-50.0); MEAN CORPUSCULAR HEMOGLOBIN 30.6 pg (28.0-32.0); MEAN PLATELET VOLUME 11.8 fl (7.4-10.4); MONOCYTES % 9.5 % (2.0-8.0); NEUTROPHILS % 77.8 % (40.0-76.0); PLATELET 157 x1000/uL (130-400); RED BLOOD CELL COUNT 3.74 mill/uL (4.2-5.4); RED CELL DISTRIBUTION WIDTH 14.4 % (11.6-14.6)
[2022-01-15 08:05] LABS: CHLORIDE 108 mEq/L (98-107)
[2022-01-15] MEDS: ENOXAPARIN 40MG/0.4ML SYR SUBCUT SCH (09:32)
[2022-01-15] MEDS: PANTOPRAZOLE SODIUM 40 MG/VIAL IV SCH ×2 (09:32→20:38)
[2022-01-15] MEDS: KETOROLAC 15MG/ML VIAL IV PRN ×2 (09:50→18:50)
[2022-01-15] MEDS ORDERED: POTASSIUM CHLORIDE 20MEQ/PACKET GT SCH (11:00)
[2022-01-15] MEDS: DEXT 5%/LACTATED RINGERS 1,000 ML IV SCH (12:35)
[2022-01-15 20:00] VITALS: BP 183/88
[2022-01-16] VITALS: BP 180/92
[2022-01-16] MEDS: LORAZEPAM 2MG/ML CPJ IV PRN (00:44)
[2022-01-16] MEDS: DEXT 5%/LACTATED RINGERS 1,000 ML IV SCH ×2 (01:55→15:15)
[2022-01-16 04:00] VITALS: BP 158/66
[2022-01-16] MEDS: SUCRALFATE 1 G/10 ML UDC GT SCH ×2 (07:06→12:32)
[2022-01-16] MEDS: METOCLOPRAMIDE HCL 10MG/2ML VIAL IV SCH ×2 (07:06→12:00)
[2022-01-16] MEDS: NITROGLYCERIN OINT 1GM/INCH UDPKT TD SCH ×3 (07:06→20:38)
[2022-01-16 08:00] VITALS: BP 146/71
[2022-01-16] MEDS: PANTOPRAZOLE SODIUM 40 MG/VIAL IV SCH ×2 (08:40→20:38)
[2022-01-16] MEDS: ENOXAPARIN 40MG/0.4ML SYR SUBCUT SCH (09:00)
[2022-01-16] MEDS ORDERED: POTASSIUM CHLORIDE 20MEQ TABLET SR PO NR (10:00)
[2022-01-16 12:00] VITALS: BP 174/92
[2022-01-16 16:00] VITALS: BP 196/95
[2022-01-16 20:00] VITALS: BP 161/68
[2022-01-16 22:04] LABS: HEMATOCRIT 33.6 % (36.0-48.0); HEMOGLOBIN 11.3 g/dL (12.0-16.0); MEAN CORPUSCULAR HEMOGLOBIN 30.7 pg (28.0-32.0); MEAN CORPUSCULAR VOLUME 91.5 fL (81.0-99.0); PLATELET 191 x1000/uL (130-400); RED BLOOD CELL COUNT 3.67 mill/uL (4.2-5.4); RED CELL DISTRIBUTION WIDTH 14.7 % (11.6-14.6)
[2022-01-16 22:25] LABS: CHLORIDE 108 mEq/L (98-107)
[2022-01-17] VITALS: BP 176/90
[2022-01-17] MEDS: SUCRALFATE 1 G/10 ML UDC GT SCH ×2 (00:25→05:08)
[2022-01-17 04:00] VITALS: BP 172/75
[2022-01-17] MEDS: NITROGLYCERIN OINT 1GM/INCH UDPKT TD SCH (05:09)
[2022-01-17 08:00] VITALS: BP 178/96
[2022-01-17] MEDS ORDERED: AMLODIPINE 10MG TABLET PO SCH (09:30)
[2022-01-17] MEDS: PANTOPRAZOLE SODIUM 40 MG/VIAL IV SCH (10:25)
[2022-01-17] MEDS: ENOXAPARIN 40MG/0.4ML SYR SUBCUT SCH (10:26)
[2022-01-17 11:25] VITALS: BP 178/96
[2022-01-17] MEDS: LORAZEPAM 2MG/ML CPJ IV PRN (11:43)
== END 2022-01-17 12:00 | DRG 394 ==
LOC: ER 03:03 → 6EST 05:46 → EDBEDREQTM 06:00 → EDBEDREQ 06:00
PROVIDERS: ADMIT Internal Medicine; ATTEND Internal Medicine
PROC: 0DH63UZ Insertion of Feeding Device into Stomach, Percutaneous Approach (ICD-10-PCS; principal; 2022-01-14)
PROC: 0DB78ZX Excision of Stomach, Pylorus, Via Natural or Artificial Opening Endoscopic, Diagnostic (ICD-10-PCS; 2022-01-14)
DX: K94.23 Gastrostomy malfunction (principal); E44.0 Moderate protein-calorie malnutrition; L03.90 Cellulitis, unspecified; E87.6 Hypokalemia; F20.9 Schizophrenia, unspecified; D25.9 Leiomyoma of uterus, unspecified; K29.70 Gastritis, unspecified, without bleeding; Z20.822 Contact with and (suspected) exposure to COVID-19; F03.90 Unspecified dementia, unspecified severity, without behavioral disturbance, psychotic disturbance, mood disturbance, and anxiety; I11.0 Hypertensive heart disease with heart failure; I50.9 Heart failure, unspecified; R13.10 Dysphagia, unspecified; K44.9 Diaphragmatic hernia without obstruction or gangrene; I25.2 Old myocardial infarction; Z86.73 Personal history of transient ischemic attack (TIA), and cerebral infarction without residual deficits; Z79.82 Long term (current) use of aspirin
CPT/HCPCS: 36415; 80048; 80053; 82607; 82746; 83036; 83540; 83550; 83735; 83970; 84100; 84439; 84443; 85025; 85027; 87426; 88305; 93970; 97162; 99285; C1893; C9113; J0360; J0690; J1100; J1650; J1885; J2060; J2250; J2405; J2704; J2765; J3480; J3490; J7030; J7060; A4315

== ENCOUNTER 2023-03-11 11:32 | Inpatient (IN) | payer MEDICARE, MEDICAID ==
[~2023-03-11] VITALS: Ht 162.6 cm; Wt 54.0 kg
[2023-03-11] MEDS ORDERED: NOREPINEPHRINE 8MG/250ML PMX 250 ML IV ONE (12:30)
[2023-03-11] MEDS ORDERED: SODIUM CHLORIDE 0.9% 1000ML BAG (SEPSIS BOLUS) IV ONE (12:30)
[2023-03-11 12:56] LABS: HEMATOCRIT. 39.9 % (36.0-48.0); HEMOGLOBIN. 12.9 g/dL (12.0-16.0); MEAN CORPUSCULAR HEMOGLOBIN 29.6 pg (28.0-32.0); MEAN CORPUSCULAR HGB CONC 32.4 g/dL (31.0-37.0); MEAN CORPUSCULAR VOLUME 91.4 fL (81.0-99.0); MEAN PLATELET VOLUME 12.3 fl (7.4-10.4); PLATELET 264 x1000/uL (130-400); RED BLOOD CELL COUNT 4.36 mill/uL (4.2-5.4)
[2023-03-11] MEDS: NOREPINEPHRINE 8MG/250ML PMX 250 ML IV PRN (13:00)
[2023-03-11 13:11] LABS: DIFFERENTIAL COMMENT 1
[2023-03-11] MEDS ORDERED: VANCOMYCIN 1G PREMIX 200 ML IV ONE (13:15)
[2023-03-11] MEDS ORDERED: PIPERACILLIN/TAZ 3.375G PREMIX 50 ML IV ONE (13:15)
[2023-03-11 13:37] LABS: PLATELET ESTIMATE NORMAL
[2023-03-11 14:02] LABS: ALANINE AMINOTRANSFERASE 52 IU/L (10-49); ALBUMIN 3.5 g/dL (3.2-4.8); ASPARTATE AMINOTRANSFERASE 57 IU/L (<34); BILIRUBIN TOTAL 1.4 mg/dL (0.1-1.0); CALCIUM 11.6 mg/dL (8.7-10.4); CARBON DIOXIDE 24 mEq/L (21-32); CHLORIDE 109 mEq/L (98-107); GLUCOSE 111 mg/dL (70-105); POTASSIUM 3.3 mEq/L (3.5-5.1); PROTEIN TOTAL 7.3 g/dL (6.0-8.3); SODIUM 143 mEq/L (136-145); UREA NITROGEN BLOOD 63 mg/dL (9-23)
[2023-03-11 14:05] LABS: CLARITY URINE CLOUDY (CLEAR); COLOR URINE DARK YELLOW (YELLOW); GLUCOSE URINE NEGATIVE (NEGATIVE); KETONES URINE NEGATIVE (NEGATIVE); LEUKOCYTE ESTERASE URINE 3+ (NEGATIVE); NITRITE URINE NEGATIVE (NEGATIVE); OCCULT BLOOD URINE 1+ (NEGATIVE); PH URINE 5.5 (4.5-8.0); PROTEIN URINE NEGATIVE (NEGATIVE); SPECIFIC GRAVITY URINE 1.021 (1.005-1.030)
[2023-03-11 14:23] LABS: TROPONIN I HIGH SENSITIVITY 254 ng/L (3.0-34)
[2023-03-11 14:28] LABS: BACTERIA URINE 2+; SQUAMOUS EPITHELIAL CELL URINE 1+ /lpf (RARE/1+); WBC URINE 15-25 /hpf (0-2); YEAST URINE NONE SEEN
[2023-03-11] MEDS ORDERED: POTASSIUM CHLORIDE INJ 40 MEQ in DEXT 5% WATER 250 ML IV ONE (14:45)
[2023-03-11 15:47] LABS: PROTHROMBIN TIME 10.6 sec (9.6-11.0)
[2023-03-11] MEDS: KCL 20MEQ/100ML X 2 FOR TOTAL KCL 40MEQ/200ML IV SCH ×2 (15:58→16:45)
[2023-03-11 16:06] LABS: TROPONIN I HIGH SENSITIVITY 256 ng/L (3.0-34)
[2023-03-11] MEDS ORDERED: GUAIFENESIN 200MG/10ML SUGAR FREE UDC PO PRN (18:00)
[2023-03-11] MEDS ORDERED: PIPERACILLIN/TAZOBACTAM 3.375 G in DEXTROSE 5% WATER 50 ML IV SCH (18:00)
[2023-03-11] MEDS ORDERED: ACETAMINOPHEN 325MG TABLET PO PRN (18:00)
[2023-03-11] MEDS ORDERED: TRAMADOL 50MG TABLET PO PRN (18:00)
[2023-03-11] MEDS ORDERED: DOCUSATE SODIUM 100MG CAPSULE PO PRN (18:00)
[2023-03-11] MEDS ORDERED: ONDANSETRON HCL 4MG/2ML INJ IV PRN (18:00)
[2023-03-11] MEDS: ENOXAPARIN 40MG/0.4ML SYR SUBCUT SCH (22:16)
[2023-03-11] MEDS: SODIUM CHLORIDE 0.9% 1,000 ML IV SCH (22:16)
[2023-03-11] MEDS: PIPERACILLIN/TAZ 3.375G PREMIX 50 ML IV NR (22:17)
[2023-03-12] VITALS (83 sets, daily range): BP systolic 54–150; BP diastolic 18–126; PULSE 72–163; RESP 10–40; TEMP 97.8–100.5
[2023-03-12] MEDS ORDERED: NOREPINEPHRINE 8 MG in DEXT 5% WATER 242 ML IV PRN (02:45)
[2023-03-12] MEDS ORDERED: NOREPINEPHRINE 8MG/250ML PMX 250ML IV PRN (03:00)
[2023-03-12] MEDS: SODIUM CHLORIDE 0.9% 1,000 ML IV SCH ×2 (03:40→06:00)
[2023-03-12] MEDS: PIPERACILLIN/TAZ 3.375G PREMIX 50 ML IV NR (03:42)
[2023-03-12] MEDS: NOREPINEPHRINE 8MG/250ML PMX 250 ML IV PRN (03:42)
[2023-03-12] MEDS ORDERED: PIPERACILLIN/TAZOBACTAM 3.375G in DEXT 5% WATER 50ML IV SCH (06:00)
[2023-03-12] MEDS ORDERED: NALOXONE HCL 0.4MG/ML VIAL IV PRN (07:30)
[2023-03-12] MEDS: PIPERACILLIN/TAZOBACTAM 3.375G in DEXT 5% WATER 50ML IV SCH ×3 (09:35→21:23)
[2023-03-12] MEDS ORDERED: LIDOCAINE HCL 1% 10 MG/ML 10ML VIAL ONE (10:56)
[2023-03-12] MEDS ORDERED: IPRATROPIUM/ALBUTEROL 0.5-3(2.5)MG/3ML NEB HHN PRN (12:15)
[2023-03-12] MEDS: PANTOPRAZOLE SODIUM 40 MG/VIAL IV SCH (12:18)
[2023-03-12 13:04] LABS: BASOPHILS % 0.3 % (0.0-2.0); HEMATOCRIT. 31.6 % (36.0-48.0); LYMPHOCYTES % 8.8 % (20.0-50.0); MEAN CORPUSCULAR HEMOGLOBIN 29.3 pg (28.0-32.0); MEAN CORPUSCULAR HGB CONC 31.8 g/dL (31.0-37.0); MEAN CORPUSCULAR VOLUME 92.2 fL (81.0-99.0); MEAN PLATELET VOLUME 11.4 fl (7.4-10.4); MONOCYTES % 8.6 % (2.0-8.0); NEUTROPHILS % 82.3 % (40.0-76.0); PLATELET 248 x1000/uL (130-400); RED BLOOD CELL COUNT 3.43 mill/uL (4.2-5.4); RED CELL DISTRIBUTION WIDTH 15.1 % (11.6-14.6); WHITE BLOOD COUNT 17.5 x1000/uL (4.5-11.0)
[2023-03-12 13:20] LABS: ALANINE AMINOTRANSFERASE 26 IU/L (10-49); ALBUMIN 2.9 g/dL (3.2-4.8); ASPARTATE AMINOTRANSFERASE 27 IU/L (<34); BILIRUBIN TOTAL 1.3 mg/dL (0.1-1.0); CALCIUM 10.3 mg/dL (8.7-10.4); CARBON DIOXIDE 27 mEq/L (21-32); CHLORIDE 120 mEq/L (98-107); CHOLESTEROL 130 mg/dL (<200); CREATININE 0.6 mg/dL (0.6-1.0); GLUCOSE 141 mg/dL (70-105); HDL CHOLESTEROL 29 mg/dL (>65); LDL CHOLESTEROL 88 mg/dL (5-100); POTASSIUM 3.2 mEq/L (3.5-5.1); PROTEIN TOTAL 6.4 g/dL (6.0-8.3); TRIGLYCERIDE 70 mg/dL (0-150); UREA NITROGEN BLOOD 52 mg/dL (9-23)
[2023-03-12 13:32] LABS: SODIUM 153 mEq/L (136-145)
[2023-03-12 15:34] LABS: BG BASE EXCESS -2.4 mmol/L (-2.0-2.0); BG CARBOXYHEMOGLOBIN 0.3 % (0.5-1.5); BG DEOXYHEMOGLOBIN 2.1 % (0.0-5.0); BG FRACTION INSPIRED OXYGEN 21; BG HCO3 ACT 19.4 mmol/L (22.0-26.0); BG METHEMOGLOBIN 0.3 % (0.0-1.5); BG OXYGEN SATURATION 97.9 % (92.0-98.5); BG OXYHEMOGLOBIN 97.3 % (94.0-97.0); BG PCO2 25.1 mmHg (35.0-45.0); BG PH 7.507 (7.350-7.450); BG PO2 105.5 mmHg (75.0-100.0); BG SAMPLE SITE RIGHT RADIAL; BG TOTAL HEMOGLOBIN 11.2 g/dL (12.0-18.0); BG VENT MODE ROOM AIR
[2023-03-12] MEDS ORDERED: VASOPRESSIN 20 UNIT in SODIUM CHLORIDE 0.9% 99 ML IV PRN (17:15)
[2023-03-12] MEDS ORDERED: PHENYLEPHRINE 100 MG in DEXT 5% WATER 240 ML IV PRN (17:15)
[2023-03-12] MEDS ORDERED: ALBUMIN HUMAN 12.5GM/50ML (25%) IV NR (17:30)
[2023-03-12] MEDS: KCL 20MEQ/100ML PREMIX 100 ML IV SCH ×2 (17:57→20:07)
[2023-03-12] MEDS: AMIODARONE HCL 900 MG in DEXT 5% WATER 482 ML IV PRN (18:25)
[2023-03-12] MEDS: ENOXAPARIN 40MG/0.4ML SYR SUBCUT SCH (20:10)
[2023-03-12] MEDS: ASPIRIN 81MG EC TABLET PO SCH (20:51)
[2023-03-12] MEDS: MIDODRINE HCL 5MG TABLET PEG SCH (20:51)
[2023-03-12] MEDS: QUETIAPINE FUMARATE 25MG TABLET PEG SCH (20:52)
[2023-03-12] MEDS: ATORVASTATIN CALCIUM 40MG TABLET PEG SCH (20:52)
[2023-03-12] MEDS: DEXT 5%/0.45% NACL 1000ML 1,000 ML IV SCH (20:54)
[2023-03-12] MEDS: ARIPIPRAZOLE 5MG TABLET PEG SCH (21:22)
[2023-03-12] MEDS: MIRTAZAPINE 15MG TABLET PEG SCH (21:22)
[2023-03-12] MEDS: BUSPIRONE HCL 5MG TABLET PEG SCH (21:22)
[2023-03-13] VITALS (100 sets, daily range): BP systolic 78–156; BP diastolic 46–115; PULSE 47–111; RESP 12–38; TEMP 98.3–98.9
[2023-03-13] MEDS: PIPERACILLIN/TAZOBACTAM 3.375G in DEXT 5% WATER 50ML IV SCH ×3 (05:07→22:07)
[2023-03-13 05:30] LABS: BASOPHILS % 0.6 % (0.0-2.0); EOSINOPHILS % 0.4 % (0.0-5.0); HEMATOCRIT. 29.6 % (36.0-48.0); HEMOGLOBIN. 9.2 g/dL (12.0-16.0); LYMPHOCYTES % 15.6 % (20.0-50.0); MEAN CORPUSCULAR HEMOGLOBIN 29.2 pg (28.0-32.0); MEAN CORPUSCULAR VOLUME 94.2 fL (81.0-99.0); MEAN PLATELET VOLUME 11.3 fl (7.4-10.4); MONOCYTES % 8.4 % (2.0-8.0); PLATELET 150 x1000/uL (130-400); RED BLOOD CELL COUNT 3.14 mill/uL (4.2-5.4); RED CELL DISTRIBUTION WIDTH 15.5 % (11.6-14.6)
[2023-03-13 06:12] LABS: ALANINE AMINOTRANSFERASE 19 IU/L (10-49); ALBUMIN 2.8 g/dL (3.2-4.8); ASPARTATE AMINOTRANSFERASE 23 IU/L (<34); BILIRUBIN TOTAL 1.4 mg/dL (0.1-1.0); CALCIUM 10.1 mg/dL (8.7-10.4); CARBON DIOXIDE 25 mEq/L (21-32); CHLORIDE 122 mEq/L (98-107); CREATININE 0.5 mg/dL (0.6-1.0); GLUCOSE 94 mg/dL (70-105); POTASSIUM 3.2 mEq/L (3.5-5.1); PROTEIN TOTAL 5.8 g/dL (6.0-8.3); SODIUM 152 mEq/L (136-145); UREA NITROGEN BLOOD 36 mg/dL (9-23)
[2023-03-13] MEDS: PANTOPRAZOLE SODIUM 40 MG/VIAL IV SCH (09:22)
[2023-03-13] MEDS: ASPIRIN 81MG EC TABLET PO SCH (09:23)
[2023-03-13] MEDS: ARIPIPRAZOLE 5MG TABLET PEG SCH (09:23)
[2023-03-13] MEDS: GABAPENTIN 100MG CAPSULE PEG SCH ×2 (09:23→17:48)
[2023-03-13] MEDS: MIDODRINE HCL 5MG TABLET PEG SCH ×3 (09:23→17:48)
[2023-03-13] MEDS: LEVETIRACETAM 500MG TABLET PEG SCH ×2 (09:23→17:48)
[2023-03-13] MEDS: BUSPIRONE HCL 5MG TABLET PEG SCH (09:23)
[2023-03-13] MEDS: QUETIAPINE FUMARATE 25MG TABLET PEG SCH ×2 (09:23→17:48)
[2023-03-13] MEDS: DEXT 5%/0.45% NACL 1000ML 1,000 ML IV SCH ×2 (09:23→22:39)
[2023-03-13] MEDS ORDERED: POTASSIUM CHLORIDE 20MEQ/PACKET PEG NR (09:45)
[2023-03-13] MEDS: AMIODARONE HCL 900 MG in DEXT 5% WATER 482 ML IV PRN (17:49)
[2023-03-13] MEDS: MIRTAZAPINE 15MG TABLET PEG SCH (20:40)
[2023-03-13] MEDS: ATORVASTATIN CALCIUM 40MG TABLET PEG SCH (20:41)
[2023-03-13] MEDS: ENOXAPARIN 40MG/0.4ML SYR SUBCUT SCH (20:42)
[2023-03-14] VITALS (42 sets, daily range): BP systolic 93–181; BP diastolic 47–123; PULSE 47–65; RESP 14–30; TEMP 97.4–99
[2023-03-14] MEDS: PIPERACILLIN/TAZOBACTAM 3.375G in DEXT 5% WATER 50ML IV SCH ×3 (06:32→21:46)
[2023-03-14] MEDS: ARIPIPRAZOLE 5MG TABLET PEG SCH (09:29)
[2023-03-14] MEDS: PANTOPRAZOLE SODIUM 40 MG/VIAL IV SCH (09:29)
[2023-03-14] MEDS: QUETIAPINE FUMARATE 25MG TABLET PEG SCH ×2 (09:30→17:08)
[2023-03-14] MEDS: MIDODRINE HCL 5MG TABLET PEG SCH (09:30)
[2023-03-14] MEDS: BUSPIRONE HCL 5MG TABLET PEG SCH (09:30)
[2023-03-14] MEDS: LEVETIRACETAM 500MG TABLET PEG SCH ×2 (09:30→17:08)
[2023-03-14] MEDS: GABAPENTIN 100MG CAPSULE PEG SCH ×2 (09:31→17:08)
[2023-03-14] MEDS: ASPIRIN 81MG EC TABLET PO SCH (09:31)
[2023-03-14] MEDS ORDERED: MIDODRINE HCL 5MG TABLET PEG SCH (13:00)
[2023-03-14] MEDS: DEXT 5%/0.45% NACL 1000ML 1,000 ML IV SCH (13:53)
[2023-03-14] MEDS ORDERED: CLONIDINE 0.1MG TABLET PO PRN (15:30)
[2023-03-14] MEDS: AMLODIPINE 10MG TABLET GT SCH (15:39)
[2023-03-14] MEDS ORDERED: ACETAMINOPHEN 325MG TABLET PEG PRN (17:52)
[2023-03-14] MEDS ORDERED: CLONIDINE 0.1MG TABLET PEG PRN (17:56)
[2023-03-14] MEDS ORDERED: GUAIFENESIN 200MG/10ML SUGAR FREE UDC PEG PRN (17:56)
[2023-03-14] MEDS ORDERED: TRAMADOL 50MG TABLET PEG PRN (18:06)
[2023-03-14] MEDS ORDERED: DOCUSATE SODIUM SUGAR FREE 100MG/10ML UDC PEG PRN (18:15)
[2023-03-14] MEDS: ATORVASTATIN CALCIUM 40MG TABLET PEG SCH (20:47)
[2023-03-14] MEDS: MIRTAZAPINE 15MG TABLET PEG SCH (20:47)
[2023-03-14] MEDS: ENOXAPARIN 40MG/0.4ML SYR SUBCUT SCH (20:47)
[2023-03-15] VITALS: BP 135/63; PULSE 58; RESP 16; TEMP 99.5
[2023-03-15 04:00] VITALS: BP 152/62; PULSE 58; RESP 17; TEMP 98.4
[2023-03-15] MEDS: DEXT 5%/0.45% NACL 1000ML 1,000 ML IV SCH (06:47)
[2023-03-15] MEDS: PIPERACILLIN/TAZOBACTAM 3.375G in DEXT 5% WATER 50ML IV SCH (06:47)
[2023-03-15 08:00] VITALS: BP 161/78; PULSE 61; RESP 19; TEMP 97.4
[2023-03-15] MEDS: PANTOPRAZOLE SODIUM 40 MG/VIAL IV SCH (08:33)
[2023-03-15] MEDS: ARIPIPRAZOLE 5MG TABLET PEG SCH (08:34)
[2023-03-15] MEDS: GABAPENTIN 100MG CAPSULE PEG SCH (08:34)
[2023-03-15] MEDS: LEVETIRACETAM 500MG TABLET PEG SCH (08:34)
[2023-03-15] MEDS: BUSPIRONE HCL 5MG TABLET PEG SCH (08:34)
[2023-03-15] MEDS: AMLODIPINE 10MG TABLET GT SCH (08:34)
[2023-03-15] MEDS: QUETIAPINE FUMARATE 25MG TABLET PEG SCH (08:36)
[2023-03-15] MEDS ORDERED: ASPIRIN 81MG TABLET PO SCH (09:00)
[2023-03-15 12:00] VITALS: BP 140/76; PULSE 70; RESP 19; TEMP 97.6
[2023-03-15] MEDS ORDERED: SULFAMETHOXAZOLE/TRIMETHOPRIM 800/160MG TABLET PO SCH (13:00)
[2023-03-15 14:50] VITALS: BP 19/149; PULSE 70; TEMP 97.6; O2SAT 72
[2023-03-15 16:00] VITALS: BP 133/77; PULSE 72; RESP 19; TEMP 97.5
[2023-03-15 16:33] LABS: ALANINE AMINOTRANSFERASE 73 IU/L (10-49); ALBUMIN 2.7 g/dL (3.2-4.8); ASPARTATE AMINOTRANSFERASE 79 IU/L (<34); BILIRUBIN TOTAL 0.5 mg/dL (0.1-1.0); CALCIUM 9.7 mg/dL (8.7-10.4); CARBON DIOXIDE 22 mEq/L (21-32); CHLORIDE 114 mEq/L (98-107); CREATININE 0.5 mg/dL (0.6-1.0); GLUCOSE 99 mg/dL (70-105); SODIUM 144 mEq/L (136-145); UREA NITROGEN BLOOD 11 mg/dL (9-23)
[2023-03-16] MEDS ORDERED: FAMOTIDINE 20MG/2ML VIAL IV SCH (09:00)
== END 2023-03-15 16:35 | DRG 871 ==
LOC: ER 11:32 → EDBEDREQ 12:40 → MICUSO 14:41 → EDBEDREQSVC 14:46 → EDBEDREQTM 14:46 → EDBEDREQ 14:46 → MICUNO 03-12 02:30 → 6WST 03-14 13:11
PROVIDERS: ADMIT Hospitalist; ATTEND Hospitalist
PROC: 5A1935Z Respiratory Ventilation, Less than 24 Consecutive Hours (ICD-10-PCS; principal; 2023-03-12)
PROC: 02HV33Z Insertion of Infusion Device into Superior Vena Cava, Percutaneous Approach (ICD-10-PCS; 2023-03-12)
PROC: B548ZZA Ultrasonography of Superior Vena Cava, Guidance (ICD-10-PCS; 2023-03-12)
PROC: 0BH17EZ Insertion of Endotracheal Airway into Trachea, Via Natural or Artificial Opening (ICD-10-PCS; 2023-03-12)
DX: A41.59 Other Gram-negative sepsis (principal); R65.21 Severe sepsis with septic shock; E87.0 Hyperosmolality and hypernatremia; G93.40 Encephalopathy, unspecified; N39.0 Urinary tract infection, site not specified; E87.6 Hypokalemia; Z66 Do not resuscitate; F03.90 Unspecified dementia, unspecified severity, without behavioral disturbance, psychotic disturbance, mood disturbance, and anxiety; F20.9 Schizophrenia, unspecified; I11.0 Hypertensive heart disease with heart failure; B96.1 Klebsiella pneumoniae [K. pneumoniae] as the cause of diseases classified elsewhere; I25.10 Atherosclerotic heart disease of native coronary artery without angina pectoris; I50.9 Heart failure, unspecified; R13.10 Dysphagia, unspecified; G40.909 Epilepsy, unspecified, not intractable, without status epilepticus; I48.91 Unspecified atrial fibrillation; I73.9 Peripheral vascular disease, unspecified; R26.9 Unspecified abnormalities of gait and mobility; L89.511 Pressure ulcer of right ankle, stage 1; Z86.73 Personal history of transient ischemic attack (TIA), and cerebral infarction without residual deficits; Z93.1 Gastrostomy status; I25.2 Old myocardial infarction
CPT/HCPCS: 36415; 36573; 36600; 71045; 80053; 80061; 81003; 82375; 82805; 82962; 83605; 83735; 83880; 84145; 84484; 85025; 86850; 86900; 87077; 87186; 93005; 93306; 93970; 99291; A6261; C1725; C9113; J0282; J1650; J2543; J3370; J3480; J3490; J7030; J7060; P9047

== ENCOUNTER 2023-04-01 02:37 | Inpatient (IN) | payer MEDICARE, MEDICAID ==
[2023-04-01] VITALS (10 sets, daily range): BP systolic 98–118; BP diastolic 76–78; PULSE 95–99; RESP 26–45; TEMP 96.6–97; O2SAT 94
[~2023-04-01] VITALS: Ht 167.6 cm; Wt 59.7 kg
[~2023-04-01 02:37] MED LIST changes: +PANT40TA51 MT
[2023-04-01] MEDS ORDERED: IPRATROPIUM BROMIDE (0.02%) 0.5MG/2.5ML NEB HHN STA (02:46)
[2023-04-01] MEDS ORDERED: ALBUTEROL (0.083%) 2.5MG/3ML NEB HHN STA (02:46)
[2023-04-01 04:41] LABS: BASOPHILS % 0.2 % (0.0-2.0); EOSINOPHILS % 0.1 % (0.0-5.0); HEMATOCRIT. 37.6 % (36.0-48.0); HEMOGLOBIN. 12.1 g/dL (12.0-16.0); LYMPHOCYTES % 8.5 % (20.0-50.0); MEAN CORPUSCULAR HEMOGLOBIN 29.4 pg (28.0-32.0); MEAN CORPUSCULAR HGB CONC 32.1 g/dL (31.0-37.0); MEAN CORPUSCULAR VOLUME 91.6 fL (81.0-99.0); MEAN PLATELET VOLUME 11.9 fl (7.4-10.4); NEUTROPHILS % 80.2 % (40.0-76.0); PLATELET 357 x1000/uL (130-400); RED CELL DISTRIBUTION WIDTH 15.9 % (11.6-14.6); WHITE BLOOD COUNT 12.1 x1000/uL (4.5-11.0)
[2023-04-01] MEDS ORDERED: ALBUTEROL (0.083%) 2.5MG/3ML NEB HHN NR (04:45)
[2023-04-01] MEDS ORDERED: IPRATROPIUM BROMIDE (0.02%) 0.5MG/2.5ML NEB HHN NR (04:45)
[2023-04-01 05:07] LABS: ALANINE AMINOTRANSFERASE 46 IU/L (10-49); ALBUMIN 3.6 g/dL (3.2-4.8); ASPARTATE AMINOTRANSFERASE 74 IU/L (<34); BILIRUBIN TOTAL 0.8 mg/dL (0.1-1.0); CALCIUM 11.8 mg/dL (8.7-10.4); CARBON DIOXIDE 26 mEq/L (21-32); CHLORIDE 99 mEq/L (98-107); GLUCOSE 164 mg/dL (70-105); POTASSIUM 4.2 mEq/L (3.5-5.1); PROTEIN TOTAL 7.8 g/dL (6.0-8.3); SODIUM 140 mEq/L (136-145); UREA NITROGEN BLOOD 45 mg/dL (9-23)
[2023-04-01 05:10] LABS: CREATININE 1.3 mg/dL (0.6-1.0)
[2023-04-01 05:11] LABS: ETHANOL BLOOD < 10 mg/dL (<10); LACTIC ACID 6.8 mmol/L (0.4-2.0); TROPONIN I HIGH SENSITIVITY 241 ng/L (3.0-34)
[2023-04-01] MEDS ORDERED: ASPIRIN 300MG SUPP PR ONE (05:15)
[2023-04-01 05:19] LABS: PARTIAL THROMBOPLASTIN TIME 26.1 sec (23.4-31.0); PROTHROMBIN TIME 10.8 sec (9.6-11.0)
[2023-04-01] MEDS ORDERED: SODIUM CHLORIDE 0.9% 1,000 ML IV NR (05:30)
[2023-04-01] MEDS ORDERED: AMPICILLIN SOD/SULBACTAM NA 1.5 G in SODIUM CHLORIDE 0.9% 50 ML IV SCH (06:00)
[2023-04-01 09:59] LABS: BG BASE EXCESS -0.2 mmol/L (-2.0-2.0); BG CARBOXYHEMOGLOBIN 0.5 % (0.5-1.5); BG DEOXYHEMOGLOBIN 0.4 % (0.0-5.0); BG METHEMOGLOBIN 0.1 % (0.0-1.5); BG OXYGEN SATURATION 99.6 % (92.0-98.5); BG PCO2 33.3 mmHg (35.0-45.0); BG PH 7.458 (7.350-7.450); BG PO2 235.5 mmHg (75.0-100.0); BG SAMPLE SITE LEFT RADIAL; BG TOTAL HEMOGLOBIN 13.2 g/dL (12.0-18.0); BG VENT MODE MASK - BIPAP
[2023-04-01] MEDS ORDERED: DEXT 5%/LACTATED RINGERS 1,000 ML IV SCH (10:00)
[2023-04-01] MEDS ORDERED: LACTATED RINGERS IV ONE (10:00)
[2023-04-01] MEDS ORDERED: ACETAMINOPHEN 650MG/20.3ML UDC GT PRN ×2 (10:00)
[2023-04-01] MEDS ORDERED: DOCUSATE SODIUM 100MG CAPSULE PO PRN (10:00)
[2023-04-01] MEDS ORDERED: ZOLPIDEM TARTRATE 5MG TABLET PO PRN (10:00)
[2023-04-01] MEDS ORDERED: ONDANSETRON HCL 4MG/2ML INJ IV PRN (10:00)
[2023-04-01] MEDS ORDERED: IPRATROPIUM/ALBUTEROL 0.5-3(2.5)MG/3ML NEB NEB PRN (10:00)
[2023-04-01] MEDS ORDERED: MAGNESIUM/ALUMINUM HYDROXIDE/SIMETHICONE 30ML UDC PO PRN (10:00)
[2023-04-01] MEDS ORDERED: NITROGLYCERIN 0.4MG TABLET SL SL PRN (10:00)
[2023-04-01] MEDS ORDERED: GUAIFENESIN 200MG/10ML SUGAR FREE UDC PO PRN (10:00)
[2023-04-01] MEDS ORDERED: CLONIDINE 0.1MG TABLET PO PRN (10:00)
[2023-04-01] MEDS ORDERED: MEROPENEM 1,000 MG in SODIUM CHLORIDE 0.9% 100 ML IV SCH (11:00)
[2023-04-01] MEDS ORDERED: PANTOPRAZOLE 80 MG in SODIUM CHLORIDE 0.9% 100 ML IV SCH (11:30)
[2023-04-01 11:36] LABS: IRON 72 ug/dL (50-170); T4 FREE 1.33 ng/dL (0.89-1.76); THYROID STIMULATING HORMONE 7.85 uIU/mL (0.55-4.78); TOTAL IRON BINDING CAPACITY 612 ug/dl (250-425)
[2023-04-01] MEDS ORDERED: VANCOMYCIN 1.25GM PMX (XELLIA) 250 ML IV NR (12:00)
[2023-04-01] MEDS ORDERED: GUAIFENESIN 200MG/10ML SUGAR FREE UDC PO SCH (13:00)
[2023-04-01 15:16] LABS: VITAMIN B12 SERUM 632 pg/mL (211-911)
[2023-04-01] MEDS ORDERED: DOPAMINE 400MG/250ML PREMIX 250 ML IV PRN ×2 (16:30)
[2023-04-01] MEDS ORDERED: IPRATROPIUM/ALBUTEROL 0.5-3(2.5)MG/3ML NEB HHN SCH (18:00)
[2023-04-01] MEDS ORDERED: ASCORBIC ACID 500 MG TABLET PO SCH (21:00)
[2023-04-02] MEDS ORDERED: VANCOMYCIN 750MG PREMIX 150 ML IV SCH (08:00)
[2023-04-02] MEDS ORDERED: ZINC SULFATE 220 MG ( 50 ) CAPSULE PO SCH (09:00)
== END 2023-04-01 17:45 | DRG 871 ==
LOC: ER 02:51 → 5EST 04:57 → EDBEDREQ 05:00 → SUPCPDRO 09:58
PROVIDERS: ADMIT Internal Medicine; ATTEND Internal Medicine
PROC: 5A09357 Assistance with Respiratory Ventilation, Less than 24 Consecutive Hours, Continuous Positive Airway Pressure (ICD-10-PCS; principal; 2023-04-01)
DX: A41.9 Sepsis, unspecified organism (principal); J69.0 Pneumonitis due to inhalation of food and vomit; J96.01 Acute respiratory failure with hypoxia; K92.0 Hematemesis; E87.20 Acidosis, unspecified; N17.9 Acute kidney failure, unspecified; I13.0 Hypertensive heart and chronic kidney disease with heart failure and stage 1 through stage 4 chronic kidney disease, or unspecified chronic kidney disease; J44.0 Chronic obstructive pulmonary disease with (acute) lower respiratory infection; I50.9 Heart failure, unspecified; F20.9 Schizophrenia, unspecified; Z66 Do not resuscitate; I46.9 Cardiac arrest, cause unspecified; G40.909 Epilepsy, unspecified, not intractable, without status epilepticus; I25.10 Atherosclerotic heart disease of native coronary artery without angina pectoris; R65.20 Severe sepsis without septic shock; F03.90 Unspecified dementia, unspecified severity, without behavioral disturbance, psychotic disturbance, mood disturbance, and anxiety; R62.7 Adult failure to thrive; E86.0 Dehydration; I48.91 Unspecified atrial fibrillation; N18.9 Chronic kidney disease, unspecified; R13.10 Dysphagia, unspecified; Z93.1 Gastrostomy status; Z86.73 Personal history of transient ischemic attack (TIA), and cerebral infarction without residual deficits; I25.2 Old myocardial infarction
CPT/HCPCS: 36415; 36600; 71045; 80053; 80320; 82375; 82607; 82746; 82805; 83540; 83550; 83605; 83880; 83970; 84145; 84439; 84443; 84484; 85025; 93005; 93970; 94660; 99291; C9113; J0295; J2185; J3370; J7050; J7121; A4315; G0480